=== PATIENT | female | born 1985 | race Caucasian/White ===

== ENCOUNTER → 2018-06-21 14:19 | Outpatient (CLI) | payer BC, SELFPAY ==
[2018-06-24 13:25] LABS: HPV Reflexed? NOT INDICATED
== END ==
PROVIDERS: Visit Provider Obstetrics & Gynecology
DX: Z12.4 Encounter for screening for malignant neoplasm of cervix (principal)
CPT/HCPCS: 88175; G0145

== ENCOUNTER 2020-09-08 09:16 | Emergency (ER) | payer OTHER, SELFPAY ==
[2020-09-08 09:17] VITALS: BP 118/77; PULSE 98; RESP 14; TEMP 36.4; O2SAT 100; BMI 26.3
--- NOTE | 2020-09-08 09:46 | US_ITS ---
STUDY: ABDOMINAL ULTRASOUND - RIGHT UPPER QUADRANT REASON FOR VISIT: Female, 35 years old Right upper quadrant pain TECHNIQUE: Ultrasound evaluation of the right upper quadrant was performed with real-time and static wyman-scale imaging. TECHNICAL QUALITY: Adequate. COMPARISON: None. FINDINGS: Liver: The liver measures 15.3 cm. There is normal echogenicity of the liver. The bile ducts are within normal limits. There is hepatic color flow. The direction of portal flow is hepatopetal. There is no demonstrated mass lesion. Gallbladder: Normal distended gallbladder. The gallbladder wall measures 2 mm. There is a negative sonographic Saleh''s sign. There is no pericholecystic fluid. There are no gallstones. Common Bile Duct (C.B.D.): The common bile duct measures 2 mm. Pancreas: Normal size of the head, body and tail of the pancreas. There is normal echogenicity of the pancreas. There is no demonstrated pancreatic mass or cyst. Right Kidney: Normal size of the right kidney. The right kidney measures 10.4 cm. Normal renal cortex. The right cortex measures 0.9 cm. There is no demonstrated renal mass or cyst. There is no right hydronephrosis. US/Gallbladder IMPRESSION: Normal right upper quadrant ultrasound examination. Electronically Signed: Leno Martinez MD at 11:47 EST , Service support ,
--- NOTE | 2020-09-08 09:50 | ED.VISSUMM ---
- ER Visit Summary Date of Service: 09/08/20 Chief Complaint: Abdominal pain History of Present Illness: The patient is a 35 F who presents with abdominal pain that is been constant for the past 2 weeks. Patient states it feels like she is bloated. Patient states the pain is localized to the right upper quadrant and epigastric areas. Patient states it is worse with eating. Patient states he gets worse immediately after eating. Patient states it gets better with a heating pad. Patient admits to nausea but denies any vomiting. Patient denies any fevers or chills. Patient states the pain does radiate into her back. Physical Examination: Vital signs are stable. Patient is afebrile. Patient is in no acute distress. Oral mucosa is pink and moist. Neck is supple. Trachea is midline. There is no JVD. Heart was regular rate and rhythm. Lungs are clear and equal bilaterally. Abdomen is soft. Bowel sounds are normal. There is some right upper quadrant tenderness. There is no rebound or guarding noted. There is a positive Saleh sign noted. Cranial nerves II through XII are intact. There are no focal motor or sensory deficits noted. Extremities are intact. There is no calf tenderness or edema. Test Results: CBC, comprehensive metabolic profile, lipase, and urinalysis were obtained were all within normal limits. Right upper quadrant ultrasound was obtained. Gallbladder wall is normal. There are no stones noted. There is no pericholecystic fluid noted. Common bile duct was normal. This was interpreted by the radiologist and reviewed by myself. Emergency Department Course and Treatment: Patient was given IV fluids, morphine, and Zofran. Patient was feeling better on reevaluation. Patient was advised of her findings. Patient was given a prescription for Prilosec. Patient was instructed to follow-up with her primary care physician in 5 to 7 days. Patient understood and was agreeable with the plan. All questions were answered. Disposition: Discharge home Impression: 1. Right upper quadrant abdominal pain This note was generated with [employer] dictation software. It may contain incorrect words, spelling, and punctuation that were not noted in review of the chart prior to signing ED Disposition - Plan for ED Patient: Disposition: Home or Assisted Living Diagnosis: Right upper quadrant abdominal pain Instructions: ED Abdominal Pain Unkn Cause Fem Prescriptions: Omeprazole [Prilosec] 20 mg PO DAILY #30 cap Prescription Printed Referrals: Brad Jaimes DO [Primary Care Provider] - 5-7 Days
[2020-09-08] MEDS: 0.9% Normal Saline 1,000 ML 1000 ML IV (09:57)
[2020-09-08 09:59] LABS: Red Blood Cells-Urine 0 SEEN /hpf (0-5); White Blood Cells 0 SEEN /hpf (0-5)
[2020-09-08 10:15] LABS: Absolute Lymphocyte Count 1.09 X10^3/uL (0.83-4.51); Basophil# 0.03 X10^3/uL; Basophil% 0.5 % (0-1); Eosinophil# 0.07 X10^3/uL; Eosinophils% 1.3 % (0-5); Hematocrit 46.5 % (37-47); Hemoglobin 14.9 g/dL (12.0-15.0); Lymphocyte # 1.09 X10^3/ul (4.0); Lymphocyte % 19.7 % (19-41); Mean Corpuscular Hgb 29.3 pg (27.0-32.0); Mean Corpuscular Volume 91.5 fL (81-99); Mean Platelet Vol. 12.2 fl (6.2-12.0); Monocyte# 0.31 X10^3/uL; Monocyte% 5.6 % (0-10); NRBC Flagged by Analyzer 0 % (0-5); Neutrophil # 4.02 X10^3/uL (2.7-7.7); Neutrophil % 72.7 % (47-70); Platelet Count 215 K/mm3 (150-450); RBC Distribution Width CV 12.5 % (11.6-14.6); RBC Distribution Width SD 42.4 fl (35.1-43.9); Red Blood Count 5.08 M/mm3 (4.2-5.4); White Blood Count 5.5 K/mm3 (4.4-11.0)
[2020-09-08 10:19] LABS: AST(SGOT) 10 U/L (15-37); Alanine Aminotransfer ALT/SGPT 17 U/L (13-56); Albumin, Serum 4.5 g/dL (3.2-5.0); Alkaline Phosphatase 73 U/L (45-117); Anion Gap 6 (5-15); BUN 13 mg/dL (7-18); BUN/Creat Ratio 14.2 RATIO (10-20); Calcium,Total 8.9 mg/dL (8.5-10.1); Chloride 106 mmol/L (98-107); Creatinine, Serum 0.92 mg/dL (0.55-1.02); EST Glomerular Filtration Rate 74 mL/min (>60); Est Glom Filt Rate - Afr Amer 90 mL/min (>60); Globulin 4.3 g/dL (2.2-4.2); Glucose 84 mg/dL (74-106); Lipase 70 U/L (73-393); Potassium 3.8 mmol/L (3.5-5.1); Protein, Total 8.8 g/dL (6.4-8.2); Sodium Level 137 mmol/L (136-145)
[2020-09-08 10:20] LABS: Color, Urine Yellow (Yellow); Glucose, Dipstick Normal (Normal); Ketone-Dipstick 15 mg/dl (Negative); Leukocyte Esterase-Dipstick Negative /ul (Negative); Nitrite-Dipstick Negative (Negative); Occult Blood-Urine 10 /ul (Negative); Protein-Dipstick 15 mg/dl (Negative); Specific Gravity, Urine 1.025 (1.002-1.030); Urine Bilirubin Dipstick Negative (Negative); Urine Clarity Sl. Cloudy (Clear); Urine Urobilinogen Normal (Normal)
[2020-09-08 10:24] LABS: Bacteria RARE /hpf (None Seen); Mucous, Urine 1+ /hpf (<or=2+); Squamous Epithelial Cells - UA 0-5 SEEN /hpf (5-10)
[2020-09-08 12:44] VITALS: BP 110/76; PULSE 68; RESP 15
== END 2020-09-08 12:45 | disposition home or self-care (01) ==
PROVIDERS: Emergency Provider Emergency Medicine; PCP Family Medicine
DX: R10.11 Right upper quadrant pain (principal); R11.0 Nausea
CPT/HCPCS: 76705; 80053; 81001; 83690; 85025; 96360; 96361; 99283; J7030; A4216

== ENCOUNTER → 2020-11-29 09:43 | Outpatient (CLI) | payer OTHER, SELFPAY ==
[2020-12-04 19:25] LABS: HPV APTIMA, High Risk Negative (Negative)
== END ==
PROVIDERS: PCP Family Medicine; Visit Provider Student in an Organized Health Care Education/Training Program
DX: Z12.4 Encounter for screening for malignant neoplasm of cervix (principal)
CPT/HCPCS: 87624; 88175; G0145

== ENCOUNTER 2021-12-17 10:30 | Outpatient (CLI) | payer OTHER, SELFPAY ==
[2021-12-23 13:23] LABS: HPV APTIMA, High Risk Negative (Negative)
== END 2021-12-17 23:59 | disposition home or self-care (01) ==
LOC: LABSPEC 10:31
PROVIDERS: PCP Family Medicine; Visit Provider Student in an Organized Health Care Education/Training Program
DX: Z12.4 Encounter for screening for malignant neoplasm of cervix (principal)
CPT/HCPCS: 87624; 88175; G0145